=== PATIENT | female | born 1945 | race Caucasian/White ===

== ENCOUNTER → 2019-06-30 | Outpatient (CLI) | payer MEDICARE ==
[~2019-06-30] MED LIST: TRAM50TA2 PO
[2019-06-30 11:12] LABS: HEMATOCRIT 39.5 % (36.0-47.0); HEMOGLOBIN 12.8 g/dl (12.0-15.5); MEAN CORPUSCULAR HEMOGLOBIN 29.4 pg (27.0-33.0); MEAN CORPUSCULAR HGB CONC 32.4 g/dl (32.0-36.5); MEAN CORPUSCULAR VOLUME 90.8 fl (80.0-96.0); PLATELET COUNT, AUTOMATED 405 10^3/uL (150-450); RED BLOOD COUNT 4.35 10^6/uL (4.00-5.40); WHITE BLOOD COUNT 6.3 10^3/uL (4.0-10.0)
--- NOTE | 2019-06-30 11:13 | REP ---
Clinical: Preoperative assessment. Right hip replacement . Comparison: None . Technique: PA and lateral. Findings: The mediastinum and cardiac silhouette are normal. The lung craft are clear and without acute consolidation, effusion, or pneumothorax. The skeletal structures are intact and normal. Impression: 1. No acute cardiopulmonary process. Electronically Signed by Simon Masters MD 06/30/2019 11:05 A
[2019-06-30 11:23] LABS: APPEARANCE, URINE CLOUDY (CLEAR); BACTERIA, URINE AUTO NEGATIVE (NEGATIVE); BILIRUBIN, URINE AUTO NEGATIVE (NEGATIVE); BLOOD, URINE BLOOD NEGATIVE (NEGATIVE); COLOR, URINE YELLOW (YELLOW); GLUCOSE, URINE (UA) AUTO NEGATIVE (NEGATIVE); INR 1.01; KETONE, URINE AUTO TRACE mg/dL (NEGATIVE); LEUKOCYTE ESTERASE, URINE AUTO 1+ (NEGATIVE); MUCUS, URINE MODERATE (NEGATIVE); NITRITE, URINE AUTO NEGATIVE (NEGATIVE); PROTEIN, URINE AUTO NEGATIVE (NEGATIVE); RBC, URINE AUTO 18 /HPF (0-3); SQUAMOUS EPITHELIAL CELL UR AU 9 /HPF (0-6); UROBILINOGEN, URINE AUTO 0.2 mg/dL (0.0-2.0); WBC, URINE AUTO 7 /HPF (0-3)
[2019-06-30 11:38] LABS: ERYTHROCYTE SEDIMENTATION RATE 32 mm/hr (0-30)
[2019-06-30 11:45] LABS: ALBUMIN 3.8 GM/DL (3.2-5.2); ALT/SGPT 19 U/L (12-78); BILIRUBIN,TOTAL 0.2 MG/DL (0.2-1.0); BLOOD UREA NITROGEN 18 MG/DL (7-18); CALCIUM LEVEL 9.3 MG/DL (8.8-10.2); CARBON DIOXIDE LEVEL 27 MEQ/L (21-32); CHLORIDE LEVEL 107 MEQ/L (98-107); CREATININE FOR GFR 0.72 MG/DL (0.55-1.30); GLOMERULAR FILTRATION RATE > 60.0 (>39); GLUCOSE, FASTING 82 MG/DL (70-100); POTASSIUM SERUM 4.9 MEQ/L (3.5-5.1); SODIUM LEVEL 141 MEQ/L (136-145)
--- NOTE | 2019-07-01 19:50 | ECGEPIP ---
[facility] Test Date: 2019-06-30 Pat Name: MICHAEL RAMIREZ Department: Room: - Gender: Female Rush Seater: FARSHAD : 1945 Requested By: Eric Aguero Order Number: [id number] Reading MD: Rocco Gallego Measurements Intervals [place] Rate: 75 P: 52 VA: 167 QRS: -46 QRSD: 133 T: 72 QT: 431 QTc: 484 Interpretive Statements SINUS RHYTHM MARKED LEFT AXIS DEVIATION LEFT BUNDLE BRANCH BLOCK Prolonged QTc interval Comparison tracing not on file Electronically Signed on 07-01-2019 19:49:39 EDT by Rocco Gallego
== END ==
LOC: M LAB 10:05
PROVIDERS: ATTEND Orthopaedic Surgery
DX: Z01.818 Encounter for other preprocedural examination (principal); M16.11 Unilateral primary osteoarthritis, right hip; I44.7 Left bundle-branch block, unspecified

== ENCOUNTER 2019-07-24 11:36 | Inpatient (IN) | payer MEDICARE ==
--- NOTE | 2019-07-21 14:02 | HPE ---
DATE OF ANTICIPATED ADMISSION: 07/24/2019 ATTENDING PHYSICIAN: Dr. Eric Mcclendon CHIEF COMPLAINT: Right hip pain and stiffness. HISTORY: This is a pleasant adult female patient with progressively worsening right hip pain and stiffness who has failed to improve with conservative treatment. She has continued pain with her weightbearing activities that affect her activities of daily living. She has consented for a right total hip arthroplasty with Dr. Eric Mcclendon. ALLERGIES: PENICILLIN, CODEINE. CURRENT MEDICATIONS: - Priyank 1200 mg - ginkgo biloba - activated charcoal - multivitamin - white willow bark - cranberry - vitamin C - Biotin - allphalipoic acid - calcium - omeprazole 20 mg - yina root - vitamin D 31,000 units - tart cruz - vitamin B12 PAST MEDICAL HISTORY: Sciatica. PAST SURGICAL HISTORY: Partial hysterectomy, right hand surgery. FAMILY HISTORY: Noncontributory. SOCIAL HISTORY: Nonsmoker, occasionally consumes alcohol. PHYSICAL EXAMINATION: She is a well-developed, well-nourished adult female patient in no apparent distress. She ambulates with a non antalgic gait. Normocephalic, atraumatic. Alert and oriented. Appropriate mood and affect. Neck is supple, nontender with no lymphadenopathy or jugular venous distention (JVD). S1, S2 auscultated with no murmurs, rubs or gallops. Lungs clear to auscultation bilaterally with no wheezes, rales, rhonchi. Abdomen is soft, nontender. The right lower extremity is well perfused. The overlying skin is intact. No rashes, erythema or ecchymosis. Right hip has pain throughout range of motion. EKG normal sinus rhythm with left bundle branch block and left axis deviation. Chest x-ray with no acute cardiopulmonary process. LABORATORY DATA: White count 6.3, red count 4.35, hemoglobin 12.8, hematocrit 39.5, ESR 32, PT 13, INR 1.01. BUN 18, creatinine 0.72. Medical optimization by Martha Carranza NP was reviewed on chart today. IMPRESSION: Symptomatic right hip degenerative changes. PLAN: Consented for right total hip arthroplasty with Dr. Eric Mcclendon.
[~2019-07-24] VITALS: Ht 154.9 cm; Wt 60.0 kg
[~2019-07-24 11:36] MED LIST changes: +ACETAMINOPHEN 500 MG TAB PO ONE; +CLINDAMYCIN 900 MG in IV 1 EA IV ONE; +CelecoXIB 400 MG CAP PO ONE; +LIDOCAINE 1% MDV 20ML VIAL SQ PRN; +LR 1,000 ML IV ONE; +PREGABALIN 75 MG CAP(LYRICA) PO ONE
[2019-07-24] MEDS ORDERED: [UNRECOGNIZED DRUG - OTHER] PO (12:32)
[2019-07-24] MEDS ORDERED: GING1CAP PO (12:32)
[2019-07-24] MEDS ORDERED: AZO1CAP PO (12:32)
[2019-07-24] MEDS ORDERED: OMEG12004 PO (12:32)
[2019-07-24] MEDS ORDERED: VITA-157 PO (12:32)
[2019-07-24] MEDS ORDERED: OMEP40CA97 PO (12:32)
[2019-07-24] MEDS ORDERED: ALLE60TA69 PO (12:32)
[2019-07-24] MEDS ORDERED: ALPH600C PO (12:32)
[2019-07-24] MEDS ORDERED: MAGN250T7 PO (12:32)
[2019-07-24] MEDS ORDERED: FLAX1300 PO (12:32)
[2019-07-24] MEDS ORDERED: HM V5000 PO (12:32)
[2019-07-24] MEDS ORDERED: CBD OIL PO (12:32)
[2019-07-24] MEDS ORDERED: [UNRECOGNIZED DRUG - CODE] PO (12:32)
[2019-07-24] MEDS ORDERED: BRONCHW PO (12:32)
[2019-07-24] MEDS ORDERED: CHOL100029 PO (12:32)
[2019-07-24] MEDS ORDERED: LECI1CAP2 PO (12:32)
[2019-07-24] MEDS ORDERED: GINK1CAP PO (12:32)
[2019-07-24] MEDS ORDERED: ULTR5TAB PO (12:32)
[2019-07-24] MEDS ORDERED: propofoL 500 MG/50 ML VIAL As Ordered ONE (14:03)
[2019-07-24] MEDS ORDERED: MIDAZOLAM INJ 2 MG/2 ML VIAL (J2250) As Ordered ONE (14:03)
[2019-07-24] MEDS ORDERED: LIDOCAINE 2% INJ 100 MG/5 ML SDV (FOR ANES.) As Ordered ONE (14:03)
[2019-07-24] MEDS ORDERED: fentaNYL 100 MCG/2 ML INJECTION (J3010) As Ordered ONE (14:03)
[2019-07-24] MEDS ORDERED: ONDANSETRON 4MG/2ML VIAL (J2405) As Ordered ONE ×2 (14:04→17:07)
[2019-07-24] MEDS ORDERED: BUPIVACAINE LIPOSOME/PF 1.3% 20ML VIAL (13.3MG/ML)(EXPAREL)(C9290 PER1MG) As Ordered ONE (14:24)
[2019-07-24] MEDS ORDERED: CLINDAMYCIN INJ 900MG/6ML VIAL As Ordered ONE (14:24)
[2019-07-24] MEDS ORDERED: BUPIVACAINE HCL 0.5% 10 ML VIAL As Ordered ONE (14:24)
[2019-07-24] MEDS ORDERED: EPINEPHrine INJ 1 MG/ML 1ML VIAL As Ordered ONE (14:25)
[2019-07-24] MEDS ORDERED: TRANEXAMIC ACID 100 MG/ML 10ML VIAL As Ordered ONE (14:25)
[2019-07-24] MEDS ORDERED: BUPIVACAINE/EPIN 0.25% 30 ML VIAL As Ordered ONE (16:25)
[2019-07-24] MEDS ORDERED: ePHEDrine SULFATE 25 MG/5 ML(5MG/ML) SYRINGE As Ordered ONE (17:07)
[2019-07-24] MEDS ORDERED: PHENYLephrine HCL 500 MCG/5 ML (100MCG/ML) SYRINGE (J2370) As Ordered ONE (17:07)
[2019-07-24] MEDS ORDERED: BUPIVACAINE HCL 0.5% 30 ML VIAL As Ordered ONE (18:07)
[2019-07-24] MEDS ORDERED: oxyCODONE 5MG TAB PO PRN (19:15)
[2019-07-24] MEDS ORDERED: LR 1,000 ML IV SCH ×2 (19:15→20:30)
[2019-07-24] MEDS ORDERED: fentaNYL 100 MCG/2 ML INJECTION (J3010) IV PRN (19:15)
[2019-07-24] MEDS ORDERED: HYDROMORPHONE HCL 0.5 MG/ 0.5 ML SYRINGE (J1170 PER 1) IV PRN ×3 (19:15→20:45)
[2019-07-24] MEDS ORDERED: ONDANSETRON 4MG/2ML VIAL (J2405) IV PRN (19:15)
[2019-07-24] MEDS ORDERED: PROMETHAZINE INJ 25 MG/ML VIAL (J2550) As Ordered ONE (19:20)
[2019-07-24] MEDS: PROMETHAZINE INJ 25 MG/ML VIAL (J2550) IV PRN ×2 (19:25→23:34)
[2019-07-24] MEDS ORDERED: METOCLOPRAMIDE INJ 10MG/2ML VIAL (J2765) As Ordered ONE (19:54)
[2019-07-24] MEDS ORDERED: METOCLOPRAMIDE INJ 10MG/2ML VIAL (J2765) IV PRN (20:00)
[2019-07-24] MEDS ORDERED: ACETAMINOPHEN TAB 650MG DOSE (2X325MG) PO PRN (20:30)
[2019-07-24] MEDS ORDERED: PERCOCET 5MG/325MG TAB PO PRN (20:30)
[2019-07-24] MEDS ORDERED: FLEET ENEMA PR PRN (20:30)
[2019-07-24 20:35] VITALS: BP 127/62
[2019-07-24 21:10] VITALS: BP 109/60
--- NOTE | 2019-07-24 22:13 | CR.PDOC ---
General Date of Consultation: Jul 24, 2019 Referring Provider: Eric Mcclendon MD Consultation REASON FOR CONSULTATION/CHIEF COMPLAINT: [post op for right hip replacement ]. HPI - This is a 74 yo female with pmhx of right hip OA and pain who is s/p right hip total replacement today. She denied any fever, chest pain, sob or hip or leg pain. ALLERGIES: PENICILLIN, CODEINE. CURRENT MEDICATIONS: - Priyank 1200 mg - ginkgo biloba - activated charcoal - multivitamin - white willow bark - cranberry - vitamin C - Biotin - allphalipoic acid - calcium - omeprazole 20 mg - yina root - vitamin D 31,000 units - tart cruz - vitamin B12 PAST MEDICAL HISTORY: Sciatica. PAST SURGICAL HISTORY: Partial hysterectomy, right hand surgery. FAMILY HISTORY: Noncontributory. SOCIAL HISTORY: Nonsmoker, occasionally consumes alcohol. LABORATORY DATA: Please see below. ROS - all 10 point review of system is negative except for whats listed in HPI Physical exam Gen: NAD, healthy appearing , HEENT: normocephalic, atraumatic, no discharge from ears or nose, no oropharyngeal erythema or exudate, neck is supple, no lymphadenopathy, trachea midline CVS: RRR, normal S1n S2, no murmur, rubs, or gallops, no edema, no jvd Resp: LCTAB, no rhonchi, wheezes or crackles Abd : soft nontender, normal bowel sounds, no rebound tenderness or guarding MSK: right hip wound looks great, no bleeding or bruises noted, minimal swelling, dp pulse palpable, good cap refill Neuro: AOAx3, no confusion, no focal deficit Psych: normal mood and affect, good judgment ASSESSMENT/PLAN: post op right total hip replacement -prn pain meds -Anticoagulation AND antibiotics- per ortho, nurse clarifying orders dvt ppx - will be on xarelto Vital Signs/I&O Vital Signs Date Time Temp Pulse Resp B/P (MAP) Pulse Ox O2 Delivery O2 Flow Rate FiO2 07/24/19 20:20 97.5 68 18 119/59 (79) 99 2 Allergies Coded Allergies: Penicillins (Verified Allergy, Intermediate, swelling, 07/24/19) codeine (Verified Allergy, Intermediate, itchy, rash, 07/24/19) Home Medications Scheduled Alpha Lipoic Acid (Alpha Lipoic Acid) 600 Mg Capsule, 200 MG PO DAILY, (Reported) Biotin (Biotin) 5,000 Mcg Tab.rapdis, 10 MG PO DAILY, (Reported) Cannabidiol (Cbd Oil) Btl, 25,000 OIL PO DAILY, (Reported) Cranberry Fruit Extract/Vit C (Azo Cranberry Softgel) 1 Each Capsule, 1 CAP PO DAILY, (Reported) Cyanocobalamin (Vitamin B-12) (Vitamin B12) 5,000 Mcg Tab.rapdis, 500 MCG PO DAILY, (Reported) Flaxseed/Omega3,6,9/Fatty Acid (Flax Seed Oil 1,300 mg Softgel) 1 Each Capsule, 1 CAP PO DAILY, (Reported) Yina Root (Yina Root) 550 Mg Capsule, 1,100 MG PO DAILY, (Reported) Ginkgo Biloba [place]le Extract (Ginkgo Biloba) 30 Mg Capsule, 60 MG PO DAILY, (Re ported) Lecithin, Soy (Lecithin) 1,200 Mg Capsule, 1,200 MG PO DAILY, (Reported) Magnesium Oxide (Magnesium) 250 Mg Tablet, 250 MG PO DAILY, (Reported) Multivitamin (Chewable-Michael) 1 Each Tab.chew, 2 CHW PO DAILY, (Reported) [place]-3/Dha/Epa/Fish Oil ([place]-3 Fish Oil 1,200 mg Sfgl) 1,200 Mg Capsule, 1 CAP PO DAILY, (Reported) Omeprazole (Omeprazole) 40 Mg Capsule.dr, 20 MG PO DAILY, (Reported) Vitamin D (Vitamin D3) 1,000 Unit Tablet, 1,000 UNITS PO DAILY, (Reported) Vitamin E (Dl,Tocopheryl Acet) (Vitamin E) 400 Unit Capsule, 400 UNIT PO DAILY, (Reported) White Conde Bark/Salicin (White Conde Bark Powder) 5 Gm Powder, 2 POW PO DAILY, (Reported) [ionic iodine ] , 400 PO DAILY, (Reported) Scheduled PRN Fexofenadine HCl (Brooke Allergy) 60 Mg Tablet, 60 MG PO DAILYPRN PRN for NASAL CONGESTION, (Reported) Tramadol HCl (Tramadol HCl) 50 Mg Tablet, 50 MG PO Q6HP PRN for pain for 7 Days, #30 (Reported) LATHA RODRÍGUEZ MD Jul 24, 2019 21:34
[2019-07-24 22:15] VITALS: BP 128/66
[2019-07-24] MEDS: PERCOCET 5MG/325MG TAB PO PRN (22:31)
[2019-07-24] MEDS: CLINDAMYCIN 600 MG in IV 1 EA IV SCH (22:32)
[2019-07-24 23:15] VITALS: BP 119/47
[2019-07-25] VITALS (7 sets, daily range): BP systolic 97–121; BP diastolic 50–74
[2019-07-25] MEDS: CLINDAMYCIN 600 MG in IV 1 EA IV SCH (04:53)
[2019-07-25] MEDS: PERCOCET 5MG/325MG TAB PO PRN ×4 (04:54→22:17)
[2019-07-25 06:16] LABS: HEMATOCRIT 31.4 % (36.0-47.0); MEAN CORPUSCULAR HEMOGLOBIN 29.3 pg (27.0-33.0); MEAN CORPUSCULAR HGB CONC 31.8 g/dl (32.0-36.5); MEAN CORPUSCULAR VOLUME 92.1 fl (80.0-96.0); PLATELET COUNT, AUTOMATED 268 10^3/uL (150-450); RED BLOOD COUNT 3.41 10^6/uL (4.00-5.40); WHITE BLOOD COUNT 11.9 10^3/uL (4.0-10.0)
[2019-07-25 06:26] LABS: INR 1.03; PROTHROMBIN TIME 13.2 SECONDS (11.8-14.0)
[2019-07-25] MEDS ORDERED: XARE10TA PO (06:27)
[2019-07-25] MEDS ORDERED: PERC5TAB12 PO ×2 (06:27→06:31)
--- NOTE | 2019-07-25 07:16 | REP ---
RIGHT HIP, TWO VIEWS: Two views of the right hip were performed. Total hip prosthesis appears to be in good position and well aligned. Visualized osseous structures are intact. Electronically Signed by Lee Romero MD 07/25/2019 11:55 P
[2019-07-25] MEDS: MIRALAX *UNIT DOSE* 17GM PACKET PO SCH (08:53)
[2019-07-25] MEDS: MOM 30ML SUSPENSION UDC PO SCH (08:53)
[2019-07-25] MEDS: METAMUCIL (PSYLLIUM) PACKET PO SCH (08:54)
[2019-07-25] MEDS ORDERED: CelecoXIB (CeleBREX) 100 MG CAP PO ONE (09:00)
[2019-07-25] MEDS: RIVAROXABAN 10 MG TAB (XARELTO) PO SCH (17:04)
[2019-07-25] MEDS ORDERED: RIVAROXABAN 10 MG TAB (XARELTO) PO SCH (18:00)
--- NOTE | 2019-07-25 20:15 | IPNPDOC ---
Text Note Date of Service The patient was seen on 07/25/19. NOTE Subjective: Patient has mild right hip pain. Patient denies fever, chills, na usea, vomiting, shortness of breath, diarrhea or dysuria Objective: General: No acute distress HEENT: PERRLA, EOMI, no JVD CV: S1-S2 Abdomen: Nontender, nondistended Extremities: No cyanosis, no swelling, there is dressing over the lateral part of the right hip Neuro: Nonfocal, cranial nerves from 2-12 intact Assessment and plan: Patient is 74 years old female with past medical history of severe right hip post arthritis. Right hip arthroplasty was done. post op right total hip replacement -prn pain meds -Incentive spirometry -Anticoagulation treatment per ortho VS,Fishbone, I+O VS, Fishbone, I+O Laboratory Tests 07/25/19 05:49 Red Blood Count 3.41 L, Mean Corpuscular Volume 92.1, Mean Corpuscular Hemoglobin 29.3, Mean Corpuscular Hemoglobin Concent 31.8 L, Red Cell Distribution Width 14.4 Vital Signs Date Time Temp Pulse Resp B/P (MAP) Pulse Ox O2 Delivery O2 Flow Rate FiO2 07/25/19 18:31 16 07/25/19 16:15 104/50 (68) 07/25/19 16:15 98.8 96 91 07/25/19 04:54 2.0 I&O- Last 24 Hours up to 6 AM 07/25/19 06:00 Intake Total 2000 ml Output Total 650 ml Balance 1350 ml VELIA MENDOZA DO Jul 25, 2019 20:15
--- NOTE | 2019-07-25 21:13 | RO ---
DATE OF PROCEDURE: 07/24/2019 PREOPERATIVE DIAGNOSIS: Right hip osteoarthritis. POSTOPERATIVE DIAGNOSIS: Right hip osteoarthritis. PROCEDURE PERFORMED: Right total hip replacement. SURGEON: Dr. Eric Mcclendon TEACHING DIETITIAN: Abdifatah Vieyra ANESTHESIA: Spinal. ESTIMATED BLOOD LOSS: 150 mL or less, replaced with crystalloid. No complications. COMPONENTS USED: Include a DePuy Allen hip system, size 6 femoral stem, standard offset, +5 femoral neck, 36 mm femoral head, 36 mm polyethylene liner, 52 mm acetabulum, apex hole eliminator. INDICATIONS: Progressive discomfort in the right hip. She has elected for operative intervention. Consent reviewed in detail including a shefali discussion of the pathology involved, the procedure proposed, alternatives including doing nothing and risks including but not limited to pain, failure, infection, bleeding blood loss, incomplete relief of symptoms, need for additional surgery and other issues. The patient agrees to proceed. DESCRIPTION OF PROCEDURE: Identified in the holding area, site and side verified, brought to the operating room. Once the spinal was administered, she was positioned in the lateral decubitus position for exposure of the right hip for the modified Hardinge approach. Once I and the podiatric foot and ankle specialist were comfortable with the patient's positioning, she was then sterilely prepped and draped in the usual fashion for exposure. Mr. Vieyra stood anterior, I posterior. I outlined the incision with a marking pen, infiltrated with 0.25% Marcaine with epinephrine and made incision with a 10 blade knife, developed down through skin and subcuticular tissues to the lateral fascia. Lateral fascia was divided parallel with its fibers, exposing the abductor mechanism. Rent was created at the anterior one-third position of the abductor mechanism and this dissection continued to the hip capsule. [place] were held by Mr. Vieyra to assist with exposure. The capsule was split. I tagged the anterior abductor mechanism with a tag stitch and then released it from the greater trochanter for later repair. We left a cuff of tissue as per modified Hardinge approach. Next, dissection continued inferiorly releasing capsule, also vastus lateralis at its proximal aspect was split. Acetabular labrum was split and reflected head of the vastus released anteriorly. The bone hook was then utilized to dislocate the hip with Mr. Vieyra assisting with traction and rotation. Once the hip was dislocated, I placed the appropriate retractors and then I opened the femoral canal with the canal opening reamer followed by the canal finding reamer, the lateralizing reamer, and the conical reamers up through a size 6. Next, once this was accomplished, template was applied. Neck cut was made with an oscillating saw approximately two-thirds fingerbreadth from the lesser trochanter, which was visualized. Next, femoral head was removed. It was grossly arthritic. Next, I then utilized broaches through a size 6 broach, which seemed to fit appropriately. I did use the calcar planer. Mr. Vieyra helped position to protect the soft tissue. Next, once this was accomplished, attention turned to the acetabulum. Large hypertrophied capsule appreciated. This was debrided, transverse acetabular ligament and floor the acetabulum was cleared of soft tissue. Acetabular labrum was removed posteriorly. She seemed to be somewhat dysplastic having somewhat of a retroverted acetabulum. Anterior calcified labrum was removed using [place]. Next, once this was accomplished, I placed the appropriate anterior and posterior retractors, which were held by Mr. Vieyra. I then utilized an acetabular reamer from a size 45 through a size 51. I then trialed with a size 52, 52 seemed to fit appropriately, and I did not feel that we required any acetabular screws. Next, once this was accomplished, pulse lavage was utilized and then we obtained the nontrial acetabulum. The targeting device was utilized to assist us in placement of the acetabulum. The acetabulum was tamped into place under direct visualization. It was on the floor of the acetabulum. It was verified. [place] hole eliminator installed, polyethylene installed, tamped into place with nylon impactor. Irrigation was accomplished including irrigation with some TXA, which was allowed to stand for approximately a minute. Next, attention turned then back to the femoral side. I placed the broach trial and trialed through a size +5 neck length, 36 mm and that was stable with internal rotation as well as external rotation, flexion as well as extension. I did remove some calcified labrum anteriorly. There did not seem to be any levering or impingement after debridement. Next, this was then dislocated by Mr. Vieyra and then I removed the trial components. I irrigated and placed the non-trial hip stem and the non-trial femoral head, 36 mm, tamped into place with a nylon impactor. I reduced the hip. We then were repaired the capsular tissue with interrupted stitch and the abductor mechanism with interrupted and mattress stitch to the cuff of tissue anteriorly, vastus lateralis was reapproximated with interrupted stitch. The lateral fascia was reapproximated with interrupted stitch in a Stratafix running stitch, deep dermis with #3-0 Vicryl followed by application of Prineo dressing. The patient was then able to be moved to the supine position, pillow between the knees, moved to the recovery room in good condition. For further details, please refer to the medical record. Mr. Vieyra was present and participated in the entirety of the case in capacity of first officer and flight instructor.
[2019-07-26] MEDS: PERCOCET 5MG/325MG TAB PO PRN ×3 (05:59→17:57)
[2019-07-26] MEDS ORDERED: MORPHINE 15 MG SA TAB PO ONE (08:00)
[2019-07-26] MEDS: METAMUCIL (PSYLLIUM) PACKET PO SCH (08:04)
[2019-07-26] MEDS: MIRALAX *UNIT DOSE* 17GM PACKET PO SCH (08:04)
[2019-07-26] MEDS: MOM 30ML SUSPENSION UDC PO SCH (08:04)
[2019-07-26] MEDS ORDERED: CelecoXIB (CeleBREX) 100 MG CAP PO ONE (09:00)
[2019-07-26] MEDS: PROMETHAZINE INJ 25 MG/ML VIAL (J2550) IV PRN (10:04)
[2019-07-26 14:50] VITALS: BP 93/56
[2019-07-26] MEDS: RIVAROXABAN 10 MG TAB (XARELTO) PO SCH (17:56)
[2019-07-26 20:51] VITALS: BP_SYST 121; BP_SYST 127; BP_DIAS 67; BP_DIAS 79
[2019-07-26 20:55] VITALS: BP 130/71
[2019-07-27] MEDS: PERCOCET 5MG/325MG TAB PO PRN ×4 (03:20→17:15)
[2019-07-27] MEDS ORDERED: XARE10TA PO (06:31)
[2019-07-27 06:35] VITALS: BP 106/62
[2019-07-27] MEDS: METAMUCIL (PSYLLIUM) PACKET PO SCH (07:44)
[2019-07-27] MEDS: MOM 30ML SUSPENSION UDC PO SCH (07:44)
[2019-07-27] MEDS: MIRALAX *UNIT DOSE* 17GM PACKET PO SCH (07:44)
[2019-07-27] MEDS ORDERED: FLEET ENEMA PR ONE (07:45)
[2019-07-27] MEDS ORDERED: MAGNESIUM CITRATE 300 ML BTL PO ONE (07:45)
[2019-07-27 14:00] VITALS: BP 104/62
--- NOTE | 2019-07-27 16:27 | IPNPDOC ---
Text Note Date of Service The patient was seen on 07/27/19. NOTE Subjective: Patient has moderate right hip pain. Patient stated that the hip pain is around 5 out of 10 Patient denies fever, chills, nausea, vomiting, shortness of breath, diarrhea or dysuria Objective: General: No acute distress HEENT: PERRLA, EOMI, no JVD CV: S1-S2 Abdomen: Nontender, nondistended Extremities: No cyanosis, no swelling, there is dressing over the lateral part of the right hip Neuro: Nonfocal, cranial nerves from 2-12 intact Assessment and plan: Patient is 74 years old female with past medical history of severe right hip post arthritis. Right hip arthroplasty was done. post op right total hip replacement -prn pain meds -Incentive spirometry -Anticoagulation treatment per ortho VS,Fishbone, I+O VS, Fishbone, I+O Vital Signs Date Time Temp Pulse Resp B/P (MAP) Pulse Ox O2 Delivery O2 Flow Rate FiO2 07/27/19 14:00 97.1 86 18 104/62 (76) 94 07/26/19 00:21 2.0 I&O- Last 24 Hours up to 6 AM 07/27/19 06:00 Intake Total 1120 ml Output Total 0 ml Balance 1120 ml VELIA MENDOZA DO Jul 27, 2019 16:27
[2019-07-27] MEDS: RIVAROXABAN 10 MG TAB (XARELTO) PO SCH (17:14)
--- NOTE | 2019-08-01 18:23 | DSES ---
DATE OF ADMISSION: 07/24/2019 DATE OF DISCHARGE: 07/27/2019 ADMISSION DIAGNOSIS: 1. Osteoarthritis right hip OTHER DIAGNOSIS: 1. Sciatica. DISCHARGE DIAGNOSIS: 1. Osteoarthritis right hip, status post right total hip arthroplasty. OPERATION PERFORMED: Right total hip arthroplasty. HISTORY: This 74-year-old female patient with progressively worsening right hip pain and stiffness. She failed to improve with conservative management. She was admitted for elective hip replacement on the right side. HOSPITAL COURSE: The patient was admitted on the day of surgery underwent a right total hip probably arthroplasty which was uneventful. During the postoperative period, she did struggle with the requirements of physical therapy and her stay was extended. Ultimately, her pain was controlled. She was able to complete her physical therapy requirements. She was discharged home. On day of discharge, she was doing well. Weightbearing as tolerated on her right lower extremity. She will use JAMARI stockings for 30 days postoperatively for DVT prophylaxis. She will also use Xarelto 10 mg per their protocol for DVT prophylaxis. She will resume her preoperative medications and diet. She was given instructions to include but not limited to wound monitoring activity limitations. She will follow up in our office in 10-14 days. Please refer the medical record further details.
== END 2019-07-27 18:30 | disposition home health service (06) | DRG 470 ==
LOC: M SDC 11:36 → M MS5PR 11:37 → EDSTATUS 15:45 → EDUNIT# 15:45 → M MS5PR 20:35
PROVIDERS: ADMIT Orthopaedic Surgery; ATTEND Orthopaedic Surgery
PROC: 0SR902A Replacement of Right Hip Joint with Metal on Polyethylene Synthetic Substitute, Uncemented, Open Approach (ICD-10-PCS; principal; 2019-07-24 15:00)
DX: M16.11 Unilateral primary osteoarthritis, right hip (principal); Z79.899 Other long term (current) drug therapy; Z88.0 Allergy status to penicillin; Z88.5 Allergy status to narcotic agent